=== PATIENT | male | born 1960 | race Caucasian/White ===

== ENCOUNTER 2020-09-06 08:14 | Outpatient (CLI) | payer OTHER | END 2020-09-06 08:15 | disposition home or self-care (01) | LOC: NM 08:14 | PROVIDERS: ATTEND Psychiatry & Neurology Neurology | DX: G20 Parkinson's disease (principal) | CPT/HCPCS: 78803; A9584 ==

== ENCOUNTER 2022-11-29 15:13 | Outpatient (CLI) | payer OTHER | END 2022-11-29 15:14 | disposition home or self-care (01) | LOC: BICCT 15:13 | PROVIDERS: ATTEND Family Medicine | DX: M96.1 Postlaminectomy syndrome, not elsewhere classified (principal) | CPT/HCPCS: 72128 ==

== ENCOUNTER → 2022-11-29 | Outpatient (CLI) | payer OTHER | LOC: EDSTATUS 13:54 → CT 16:17 → HS RAD 16:17 | PROVIDERS: ATTEND Family Medicine | DX: M96.1 Postlaminectomy syndrome, not elsewhere classified (principal) | CPT/HCPCS: 72070 ==